=== PATIENT | female | born 1980 | race Two or more races ===

== ENCOUNTER 2025-07-06 16:03 | Emergency (ER) | payer MEDICAID, SELFPAY ==
[2025-07-06 16:04] VITALS: BMI 17.4
[2025-07-06 16:23] VITALS: BP 98/66; PULSE 86; RESP 20; TEMP 36.8; O2SAT 98
--- NOTE | 2025-07-06 16:42 | XR_ITS ---
Examination: CT abdomen and pelvis without contrast. Coronal 3-D reconstructions. Sagittal 2-D reconstructions. Date and time of exam: July 06, 2025, 1950 hours, comparison December 12, 2022 INDICATIONS: Abdominal pain nausea vomiting and diarrhea beginning 2 days ago CTDI: vol (mGy): 4.35 DLP: (mGycm): 192 Technique: Axial images of the abdomen have been obtained, 3 mm slice thickness Intravenous contrast material has not been administered. Low dose protocols were performed. One or more of the following dose reduction techniques were used; automated exposure control, adjustment of the mA and/or KV according to patient size, use of iterative reconstruction technique. Findings: No visualized liver or splenic lesion Contracted gallbladder No pancreatic mass 2 mm upper pole right renal calculus, no hydronephrosis or ureteral calculi Aorta normal size Normal appendix No bowel obstruction or diverticulitis Retroverted uterus with significantly enlarged fundus Contracted urinary bladder, mild urinary bladder wall thickening IMPRESSION: 2 mm upper pole nonobstructing right renal calculus No hydronephrosis or ureteral calculi No CT findings of appendicitis bowel obstruction or diverticulitis Enlarged fundus of the uterus, recommend pelvic sonography follow-up Suspicious for cystitis
--- NOTE | 2025-07-06 16:42 | PD.EDRME ---
Rapid Medical Screening Exam [facility] Arrival date/time: 07/06/25 16:03 44-year-old female presents to the Emergency Department for complaint of abdominal pain Chief Complaint: Abdominal Pain Vital signs: Vital Signs Temperature 98.3 F 07/06/25 16:23 Pulse Rate 86 07/06/25 16:23 Respiratory Rate 20 07/06/25 16:23 Blood Pressure 98/66 07/06/25 16:23 Pulse Oximetry (%) 98 07/06/25 16:23 Oxygen Delivery Method Room Air 07/06/25 16:23 Vital signs reviewed by provider: Yes Exam: On exam patient well-appearing patient does have mild tenderness of the lower abdomen Clinical Impression: Lab work and imaging ordered
[2025-07-06 17:27] LABS: Basophils # (Auto) 0.0 Thou/mm3 (0.0-0.2); Basophils % (Auto) 0 % (0-2.5); Eosinophils # (Auto) 0.0 Thou/mm3 (0.0-0.5); Eosinophils % (Auto) 0 % (0-10); Hematocrit 40.8 % (36.0-46.0); Hemoglobin 13.3 g/dL (12.0-16.0); Immature Granulocytes Auto 0.01 Thou/mm3 (0.00-0.00); Lymphocytes # (Auto) 0.4 Thou/mm3 (1.0-4.8); Lymphocytes % (Auto) 13 % (10-50); Mean Corpuscular HGB Conc 32.6 g/dl (31.0-37.0); Mean Corpuscular Hemoglobin 29.0 pg (25.0-35.0); Mean Corpuscular Volume 89 fL (80-100); Monocytes # (Auto) 0.2 Thou/mm3 (0.0-0.8); Monocytes % (Auto) 7 % (0-12); Neutrophils # (Auto) 2.6 Thou/mm3 (1.8-7.7); Neutrophils % (Auto) 79 % (37-80); Nucleated Red Blood Cell # 0.00 Thou/mm3 (0.00-0.00); Nucleated Red Blood Cell % 0 /100 WBC (0); Platelet Count 151 Thou/mm3 (140-440); RDW Standard Deviation 41.9 fL (36.4-46.3); Red Blood Count 4.58 Miln/mm3 (4.00-5.20); White Blood Count 3.3 Thou/mm3 (3.6-11.0)
[2025-07-06 17:52] LABS: Alanine Aminotransferase 8 U/L (10-49); Albumin, Serum 4.9 gm/dL (3.5-5.0); Albumin/Globulin Ratio 1.9 (1.2-2.2); Alkaline Phosphatase 76 U/L (46-116); Anion Gap 9 (7-16); Aspartate Amino Transferase 22 U/L (0-34); BUN/Creatinine Ratio 11 Ratio (12-20); Bilirubin,Total 0.8 mg/dL (0.3-1.2); Blood Urea Nitrogen 8 mg/dL (9-23); Calcium 9.4 mg/dL (8.3-10.6); Calcium (Corrected) 9.4 mg/dL (8.5-10.1); Carbon Dioxide 27.6 mMol/L (20.0-31.0); Chloride 102 mMol/L (98-107); Creatinine (Component) 0.7 mg/dL (0.6-1.3); Estimated Creatinine Clearance 71.4 mL/min (>60); Globulin 2.6 gm/dL (2.3-3.5); Glucose 85 mg/dL (74-106); Lipase 30 U/L (12-53); Osmolality,Calculated 274 (275-295); Potassium 3.5 mMol/L (3.4-5.1); Sodium 139 mMol/L (136-145); Total Protein 7.5 gm/dL (5.7-8.2); eGFR > 60 See Note
[2025-07-06 19:19] LABS: Collection Type, Urine Clean Catch
[2025-07-06 19:25] LABS: HCG Qualitative,Urine Negative
[2025-07-06 19:26] LABS: Bilirubin,Urine Negative (Negative); Blood,Urine Negative (Negative); Clarity,Urine Clear (Clear/Hazy); Color,Urine Yellow (Lt Yel-Yel); Culture Indicated,Urine Yes; Glucose, Urine Negative (Negative); Ketones,Urine 3+ (Negative); Leukocyte Esterase,Urine Positive (Negative); Nitrite,Urine Positive (Negative); PH,Urine 6.5 (5.0-7.0); Protein,Urine Trace (Neg - Trace); RBC,Urine 2 /hpf (0-3); Specific Gravity,Urine 1.025 (1.001-1.035); Squamous Epithelial Cell,Urine 2 /hpf (0-5); Urobilinogen,Urine Negative mg/dL (0.0-1.0); WBC,Urine 14 /hpf (0-5)
--- NOTE | 2025-07-06 20:29 | EDNOTE_ITS ---
ED Abdominal Pain RME/HPI General Chief Complaint: Abdominal Pain Stated complaint: ABD PAIN SINCE YESTERDAY, SENT BY PMD TODAY Time seen by provider: 07/06/25 18:34 Arrival date/time: 44-year-old female patient was brought in by family for evaluation regarding lower abdominal pain. Patient's been having lower abdominal pain since yesterday, this morning woke up with diarrhea and felt nauseous. Went to PCP and was referred to us due to abdominal pain. Patient denies any fever denies any dysuria frequency or other complaints. No medication was taken prior to ER visit. RME / HPI RME / HPI narrative: 07/06/25 16:03 44-year-old female presents to the Emergency Department for complaint of abdominal pain Exam: On exam patient well-appearing patient does have mild tenderness of the lower abdomen Impression: Lab work and imaging ordered Related Data Previous Rx's ?Medication ?Instructions ?Recorded ciprofloxacin HCl 500 mg tablet 500 mg PO BID #14 tabs 07/06/25 (Cipro) famotidine 40 mg tablet (Pepcid) 40 mg PO QDAY #7 tabs 07/06/25 ondansetron HCl 4 mg tablet 4 mg PO Q8H PRN nausea and 07/06/25 vomiting 5 days #14 tabs Allergies Allergy/AdvReac Type Severity Reaction Status Date / Time clindamycin Allergy Severe Itching Verified 07/06/25 16:07 loratadine Allergy Severe Rash Verified 07/06/25 16:07 Review of Systems Review of Systems Narrative Review of Systems: Review of system reviewed and within normal limits except mentioned in HPI ED Exam Narrative Physical exam: VITAL SIGNS: Reviewed. GENERAL APPEARANCE: Alert and interactive, follows commands, no acute distress, HEAD AND FACE: Non-traumatic. ENT: PERRL, pink conjunctivitis, eyelid no trauma, Mucous membrane moist. NECK: Supple, nontender, no nuchal rigidity. CHEST: No tenderness, no crepitus, no paradoxical movement, no retractions. LUNGS: Clear, well ventilated, symmetric, no rales, no wheezing, no ronchi, no stridor, good breath sounds bilaterally. HEART: Regular rate, regular rhythm, no murmur, no gallops. ABDOMEN: Soft, positive bowel sounds, nondistended, no guarding, nontender, no rebound, no masses, RECTAL: Deferred. GENITAL: Deferred. NEUROLOGICAL: Gross motor function intact sensory function intact, Appropriate for age. MUSCULOSKELETAL: low back nontender, full range of motion. EXTREMITIES: Nontender, full range of motion. SKIN: Color pink, dry, no rash, no lacerations, no abrasions, no contusions. LYMPHATICS: Deferred. Course Quality Measures none Orders Category Date Time Status CT abdomen pelvis wo con Stat Exams 07/06/25 16:42 Completed CBC Stat Lab 07/06/25 16:58 Completed Comprehensive Metabolic Panel Stat Lab 07/06/25 16:58 Completed HCG Qualitative,Urine Stat Lab 07/06/25 18:53 Completed Lipase Stat Lab 07/06/25 16:58 Completed UA, C/S IF [Urinalysis, C/S if Indicated] Stat Lab 07/06/25 18:53 Completed Urine Culture Stat Lab 07/06/25 18:53 Received Ciprofloxacin HCl [Ciprofloxacin] Med 07/06/25 20:26 Once 500 mg PO X1 ONE Dicyclomine [Bentyl] Med 07/06/25 20:27 Once 20 mg PO X1 ONE Famotidine [Pepcid] Med 07/06/25 20:28 Once 40 mg PO X1 ONE Vital Signs Vital signs: Vital Signs Temperature 98.3 F 07/06/25 16:23 Pulse Rate 86 07/06/25 16:23 Respiratory Rate 20 07/06/25 16:23 Blood Pressure 98/66 07/06/25 16:23 Pulse Oximetry (%) 98 07/06/25 16:23 Oxygen Delivery Method Room Air 07/06/25 16:23 Abdominal Pain MDM MDM Narrative MDM Narrative:: 44-year-old female patient was brought in by family for evaluation regarding lower abdominal pain. Patient's been having lower abdominal pain since yesterday, this morning woke up with diarrhea and felt nauseous. Went to PCP and was referred to us due to abdominal pain. Patient denies any fever denies any dysuria frequency or other complaints. No medication was taken prior to ER visit. CBC showed slight leukopenia. Urinalysis positive for UTI. CT scan of the abdomen pelvis showed 2 mm upper pole nonobstructing right renal calculus No hydronephrosis or ureteral calculi No CT findings of appendicitis bowel obstruction or diverticulitis Enlarged fundus of the uterus, recommend pelvic sonography follow-up Suspicious for cystitis Patient received Bentyl, Pepcid, and Cipro for UTI. Stable discharge home Patient data External records reviewed:: None Clinical information provided by:: patient Social determinants that could affect healthcare access:: none Patient has the following chronic illnesses:: Plan How is presenting disease/condition affected by chronic disease/condition?: no chronic disease Evaluation data The following diagnostics were reviewed and interpreted by me:: lab results and radiology exam(s) Lab and/or radiology exams considered but not ordered:: None Interpretation Summary: See MDM Medications / Prescriptions Medications or Prescriptions considered but not ordered:: None Medication administrations:: Medication Administration History Ciprofloxacin (Ciprofloxacin Hcl 250 Mg Tablet) 500 mg PO X1 ONE Stop: 07/06/25 20:27 Dicyclomine HCl (Dicyclomine 10 Mg Capsule) 20 mg PO X1 ONE Stop: 07/06/25 20:28 Cipro, Bentyl, Pepcid Consultations Consultation(s) initiated? (list below): No Diagnosis Differential diagnosis abdominal pain: abdominal pain and gastroenteritis Most likely diagnosis given after review of the tests above:: UTI, gastroenteritis Admission Indicated Admission indicated?: not indicated Admission Request Was there a request for admission?: No Disposition Plan Disposition Plan: Discharge Discharge Attestation Discharge Attestation: The patient was given an opportunity to ask questions and understood the [facility]ist[facility] [place] instructions. Discharge instructions specifically effects, indications for sooner follow up or return to the emergency department, and the expected course of current diagnosis. Patient condition: Stable Discharge Plan Plan Patient Disposition: HOME (Self Care) Discharge Disposition comment: stable Prescriptions/Referrals Prescriptions/Med Rec: New ciprofloxacin HCl [Cipro] 500 mg tablet 500 mg PO BID Qty: 14 0RF ondansetron HCl 4 mg tablet 4 mg PO Q8H PRN (Reason: nausea and vomiting) 5 Days Qty: 14 0RF famotidine [Pepcid] 40 mg tablet 40 mg PO QDAY Qty: 7 0RF Referrals: Gilmar Rajput MD [Primary Care Provider, Family Practice] - In 1 week Problem List Clinical Impression: Abdominal pain, UTI (urinary tract infection) Patient/Caregiver Discharge Instructions Discharge Activity: activity as tolerated Education Materials: Understanding Urinary Tract ... Additional Instructions: Thank you for the opportunity for serving you today. You are stable for discharged . You are advised to: Follow-up with your PCP in 1 to 2 days Return to ED for worsening of symptoms Increase oral fluids Take medication as prescribed Print Language: Bahraini Stand Alone Forms: Kathia Award Info., Patient Portal Info Letter
[2025-07-06] MEDS: FAMOTIDINE 20 MG TABLET 40 MG PO (20:39)
[2025-07-06] MEDS: CIPROFLOXACIN HCL 250 MG TABLET 500 MG PO (20:39)
[2025-07-06] MEDS: DICYCLOMINE 10 MG CAPSULE 20 MG PO (20:40)
[2025-07-06 20:42] VITALS: BP 122/77; PULSE 88
== END 2025-07-06 20:43 | disposition home or self-care (01) ==
PROVIDERS: Emergency Provider Nurse Practitioner Primary Care; PCP Family Medicine
DX: N39.0 Urinary tract infection, site not specified (principal)
CPT/HCPCS: 36415; 74176; 80053; 81001; 81025; 83690; 85025; 87086; 99283; A9270